=== PATIENT | male | born 1980 | race Caucasian/White ===

== ENCOUNTER 2021-07-14 13:23 | Emergency (ER) | payer SELFPAY ==
--- NOTE | 2021-07-14 16:55 | EDM.PDOC ---
ED HPI GENERAL MEDICAL PROBLEM - General Chief Complaint: Upper Extremity Injury/Pain Stated Complaint: PAIN IN BOTH ARMS Time Seen by Provider: 07/14/21 16:54 - History of Present Illness INITIAL COMMENTS - FREE TEXT/NARRATIVE: History of present illness: [] Patient rolled a tractor yesterday afternoon. He got himself with his hands. Now his forearm muscles are real sore. Review of systems: As per history of present illness and below otherwise all systems reviewed and negative. Past medical history: As per history of present illness and as reviewed below otherwise noncontributory. Surgical history: As per history of present illness and as reviewed below otherwise noncontributory. Social history: No reported history of drug or alcohol abuse. Family history: As per history of present illness and as reviewed below otherwise noncontributory. Physical exam: Constitutional - well developed, well-nourished and in no acute distress HEENT - normocephalic, no evidence of trauma - external nose and mouth normal - no mass in neck and no JVD - mucosae moist EYES - full EOM, PERRL, no icterus - no evidence of inflammation, injection, or drainage Respiratory - no respiratory distress, equal bilateral expansion Cardiovascular-capillary refill pulses intact in distal upper extremities. Musculoskeletal tender in the soft tissue muscles of both forearms. Motor function intact in both upper extremities distally. Slightly tender in his shoulders. Neck is cleared by Nexus criteria. No gross deformity of long bones or joints - no tenderness, swelling or edema Neurologic -motor sensory intact in both distal upper extremities. Alert and oriented times four - CN II-XII grossly intact - motor sensory and coordination symmetrically normal Psychiatric - appropriate mood and affect with normal thought content Hematologic - No petechiae or purpura - mucosa appropriate color and sclera not pale - normal nail bed color and refill Integument - no rash or evidence of trauma - normal turgor Diagnostics: [] Therapeutics: [] Impression: [] Plan: [] Definitive disposition and diagnosis as appropriate pending reevaluation and review of above. arm Pain Score (Numeric/FACES): 8 - Related Data Allergies Allergy/AdvReac Type Severity Reaction Status Date / Time No Known Allergies Allergy Verified 07/14/21 15:21 Home Meds: Home Meds . [No Known Home Meds] 07/14/21 [History] Past Medical History - Past Surgical History Other Musculoskeletal Surgeries/Procedures:: ankle Social & Family History - Tobacco Use Tobacco Use Status *Q: Never Tobacco User - Recreational Drug Use Recreational Drug Use: No Review of Systems - Review of Systems Review Of Systems: Comprehensive ROS is negative, except as noted in HPI. ED EXAM, GENERAL - Physical Exam Exam: See Below Free Text/Narrative:: My physical exam is in the HPI Course - Vital Signs Last Recorded V/S: Last Vital Signs Temp 36.4 C 07/14/21 15:19 Pulse 75 07/14/21 15:19 Resp 18 07/14/21 15:19 BP 124/82 07/14/21 15:19 Pulse Ox 98 07/14/21 15:19 - Orders/Labs/Meds Orders: Active Orders 24 hr Category Date Time Status Forearm 2V Lt [CR] Stat Exams 07/14/21 17:57 Taken Forearm 2V Rt [CR] Stat Exams 07/14/21 17:56 Taken Departure - Departure Time of Disposition: 18:28 Disposition: Home, Self-Care 01 Condition: Good Clinical Impression: Soft tissue injury of left forearm, Soft tissue injury of right forearm - Discharge Information Instructions: Acute Compartment Syndrome Referrals: PCP,None [Primary Care Provider] - Forms: ED Department Discharge Sepsis Event Note (ED) - Evaluation Sepsis Screening Result: No Definite Risk - Focused Exam Vital Signs: Vital Signs Temp Pulse Resp BP Pulse Ox 07/14/21 15:19 36.4 C 75 18 124/82 98 - My Orders Last 24 Hours: My Active Orders 07/14/21 17:56 Forearm 2V Rt [CR] Stat 07/14/21 17:57 Forearm 2V Lt [CR] Stat - Assessment/Plan Last 24 Hours: My Active Orders 07/14/21 17:56 Forearm 2V Rt [CR] Stat 07/14/21 17:57 Forearm 2V Lt [CR] Stat
--- NOTE | 2021-07-14 17:52 | CR ---
Indication: Trauma. Technique: Bilateral humerus 4 views. Comparison: None. Findings: Bones: Alignment is normal. No fractures or bone lesions. Joint spaces: Unremarkable. Soft tissues: Unremarkable. Impression: Normal x-rays of the humeri bilaterally. No signs of acute injury. Dictated by Randal Hathaway MD @ 07/14/2021 5:50:15 PM (Electronically Signed)
--- NOTE | 2021-07-14 18:41 | CR ---
Indication: Trauma. Technique: Right forearm 2 views. Comparison: None. Findings: Bones: Alignment is normal. No fractures or bone lesions. Joint spaces: Unremarkable. Soft tissues: Unremarkable. Impression: No sign of acute injury. Dictated by Randal Hathaway MD @ 07/14/2021 6:40:31 PM (Electronically Signed)
--- NOTE | 2021-07-14 18:41 | CR ---
Indication: Trauma. Technique: Left forearm 2 views. Comparison: None. Findings: Bones: Alignment is normal. No fractures or bone lesions. Joint spaces: Unremarkable. Soft tissues: Unremarkable. Impression: No sign of acute injury. Dictated by Randal Hathaway MD @ 07/14/2021 6:40:03 PM (Electronically Signed)
== END 2021-07-14 19:11 | disposition home or self-care (01) ==
LOC: MW.ED 13:23
DX: S59.912A Unspecified injury of left forearm, initial encounter (principal); S59.911A Unspecified injury of right forearm, initial encounter; W22.8XXA Striking against or struck by other objects, initial encounter
CPT/HCPCS: 730602650; 73060-50; 73090-26-LT; 73090-26-RT; 73090-LT; 73090-RT; 99283-25